=== PATIENT | male | born 1960 | race African-American/Black ===

== ENCOUNTER 2017-09-26 21:52 | Emergency (ER) | payer OTHER ==
[2017-09-27] MEDS: ALPRAZOLAM 0.25 MG TAB PO (01:17)
[2017-09-27] MEDS: ONDANSETRON (ODT) 4 MG TAB ODT (01:17)
== END 2017-09-27 00:10 | disposition home or self-care (01) ==
LOC: E/R 21:52
DX: K59.00 Constipation, unspecified (principal); Z76.0 Encounter for issue of repeat prescription
CPT/HCPCS: 99283; Z7502

== ENCOUNTER 2017-09-28 13:42 | Emergency (ER) | payer OTHER ==
[2017-09-28] MEDS: KETOROLAC 60 MG INJ IM (16:50)
[2017-09-28] MEDS: METHOCARBAMOL 750 MG TAB PO (16:51)
== END 2017-09-28 18:27 | disposition home or self-care (01) ==
LOC: E/R 13:42
DX: M45.6 Ankylosing spondylitis lumbar region (principal)
CPT/HCPCS: 72100; 96372; 99284-25

== ENCOUNTER 2018-03-26 15:33 | Emergency (ER) | payer SELFPAY, OTHER | END 2018-03-26 21:30 | disposition left against medical advice (07) | LOC: E/R 15:33 | DX: Z53.21 Procedure and treatment not carried out due to patient leaving prior to being seen by health care provider (principal) ==

== ENCOUNTER 2018-12-19 09:04 | Emergency (ER) | payer MEDICAID ==
[2018-12-19] MEDS: LORAZEPAM 2 MG INJ IV (09:45)
[2018-12-19] MEDS: SOD CHLORIDE 0.9% 1,000 ML IV (09:45)
[2018-12-19 10:05] LABS: ADD MAN DIFF? NO
[2018-12-19 10:10] LABS: ABNORMAL IP MESSAGE 1; BASOPHILS % 0.4 % (0.0-2.0); EOSINOPHILS % 0.1 % (0.0-7.0); HEMATOCRIT 41.6 % (42.0-52.0); HEMOGLOBIN 13.8 g/dl (14.0-18.0); LYMPHOCYTES # 0.4 10^3/ul (0.8-2.9); LYMPHOCYTES % 5.7 % (15.0-51.0); MEAN CORPUSCULAR HGB CONC 33.2 g/dl (32.0-37.0); MEAN CORPUSCULAR VOLUME 87.4 fl (82.0-101.0); MEAN PLATELET VOLUME 9.8 fl (7.4-10.4); MONOCYTE # 0.4 10^3/ul (0.3-0.9); MONOCYTES % 5.4 % (0.0-11.0); NEUTROPHIL # 6.6 10^3/ul (1.6-7.5); NEUTROPHILS % 87.7 % (39.0-77.0); PLATELET COUNT 250 10^3/UL (140-415); POSITIVE DIFF @See below; RED BLOOD COUNT 4.76 10^6/ul (4.70-6.10); RED CELL DISTRIBUTION WIDTH 13.6 % (11.5-14.5)
[2018-12-19 10:10] LABS: WHITE BLOOD COUNT 7.6 10^3/ul (4.8-10.8)
[2018-12-19 10:58] LABS: ALANINE AMINOTRANSFERASE 66 IU/L (13-69); ALBUMIN 4.3 g/dl (3.3-4.9); ALKALINE PHOSPHATASE 106 IU/L (42-121); ANION GAP 9 (5-13); ASPARTATE AMINO TRANSFERASE 150 IU/L (15-46); BILIRUBIN,INDIRECT 0.4 mg/dl (0-1.1); BILIRUBIN,TOTAL 0.4 mg/dl (0.2-1.3); BLOOD UREA NITROGEN 32 mg/dl (7-20); CALCIUM 9.7 mg/dl (8.4-10.2); CARBON DIOXIDE 26 mmol/L (21-31); CHLORIDE 107 mmol/L (97-110); Estimated GFR > 60 mL/min (>60); GLUCOSE 131 mg/dl (70-220); LIPASE 123 U/L (23-300); POTASSIUM 4.1 mmol/L (3.5-5.1); SODIUM 142 mmol/L (135-144); TOTAL PROTEIN 8.2 g/dl (6.1-8.1)
[2018-12-19 10:59] LABS: TROPONIN-I < 0.012 ng/ml (0.000-0.120)
== END 2018-12-19 14:52 | disposition home or self-care (01) ==
LOC: E/R 09:04
DX: F15.10 Other stimulant abuse, uncomplicated (principal); Z87.891 Personal history of nicotine dependence
CPT/HCPCS: 80053; 83690; 84484; 85025; 93005; 96374; 99284-25